=== PATIENT | female | born 1930 | race Caucasian/White ===

== ENCOUNTER 2017-03-25 09:00 | Outpatient (RCR) | payer MEDICARE, OTHER ==
[~2017-03-25 09:00] MED LIST: ACET500T68 PO; ADV250/50 INH; ALBU8.5H IH; AZI250 PO; AZIT500T47 PO; BUDE10.25 IH; CALC-682 PO; CEFU250 PO; CELE-1 PO; CELE50CA2 PO; COM14R IH; DEN60I SUBQ; DICL100G39 TOP; DOCU-202 PO; FLU220R INH; FURO-45 PO; GLUC-130 PO; GLUC500C29 PO; GUAI600T57 PO; HYDR-4225 PO; HYDR25CA13 PO; IBU200 PO; LOR5/325 PO; LORA5TAB16 PO; MET10 PO; METO-253 PO; MONT10TA PO; MULT1CAP41 PO; OXYC5TAB38 PO; OXYGENHOME INH; PAN40 PO; PANT20TA27 PO; POTA20TA94 PO; PRE10 PO; PROAIRPT IH; SYMBICORT INHALER; TIO18R; VEN75 PO; VENL150C61 PO; VENL37.53 PO; VENL75CA4 PO; VENL75CA58 PO; ZAFI10TA PO
[2017-04-01] MEDS ORDERED: IPRA3AMP21 IH ×2 (11:53→14:35)
[2017-04-01] MEDS ORDERED: PRED20TA6 PO (14:35)
== END 2017-04-01 ==
LOC: RESP 09:00
PROVIDERS: ATTEND Family Medicine
DX: J44.9 Chronic obstructive pulmonary disease, unspecified (principal)
CPT/HCPCS: G0424 ×8

== ENCOUNTER → 2017-04-01 | Outpatient (CLI) | payer MEDICARE, OTHER ==
[~2017-04-01] MED LIST changes: +IPRA3AMP21 IH; +PRED20TA6 PO
[2017-04-01 12:01] LABS: PLATELET COUNT, AUTOMATED 271 K/uL (150-450)
--- NOTE | 2017-04-01 13:08 | RADIOLOGY IMAGING REPORT ---
FACILITY: [facility] [place] PATIENT NAME: Marcus Rausch : 1930 MR: [id number] V: [id number] EXAM DATE: ORDERING PHYSICIAN: ADELINA WANG TECHNOLOGIST: Location: [facility] [place] Patient: Marcus Rausch : 1930 Visit/Account:[id number] Date of Sevice: 04/01/2017 EXAMINATION: PA and Lateral Chest 04/01/2017 12:14 PM HISTORY: Cough for about one week. No smoking history. COMPARISON: 12/04/2016 FINDINGS: Cardiomediastinal contours: Stable heart size. Atherosclerotic aorta. Lungs and pleura: Stable mildly accentuated reticular markings. No acute pulmonary or pleural proces s. Lungs are hyperinflated, unchanged. Bones/soft tissues: Old anterolateral right rib trauma. Osteopenia. Partially imaged dextroscolioti c lumbar curvature. IMPRESSION: Stable chest without acute cardiopulmonary finding. Report Dictated By: Brannon Wolf MD at 04/01/2017 1:01 PM Report E-Signed By: Brannon Wolf MD at 04/01/2017 1:03 PM WSN:[email or web address]
== END ==
LOC: RAD 11:42
PROVIDERS: ATTEND Nurse Practitioner Primary Care
DX: R05 Cough (principal)
CPT/HCPCS: 36415; 71046; 82040; 82247; 82310; 82374; 82435; 82565; 82947; 84075; 84132; 84155; 84295; 84450; 84460; 84520; 85025

== ENCOUNTER → 2017-04-11 | Outpatient (CLI) | payer MEDICARE, OTHER ==
[~2017-04-11] MED LIST changes: +AZIT-1 PO; +BENZ200C15 PO
--- NOTE | 2017-04-11 14:21 | RADIOLOGY IMAGING REPORT ---
FACILITY: [facility] [place] PATIENT NAME: Marcus Rausch : 1930 MR: [id number] V: [id number] EXAM DATE: ORDERING PHYSICIAN: ADELINA WANG TECHNOLOGIST: Location: [facility] - [place] Patient: Marcus Rausch : 1930 Visit/Account:[id number] Date of Sevice: 04/11/2017 CHEST PA AND LAT HISTORY: Cough. Wheezing. Shortness of breath. COMPARISON: 04/01/2017. FINDINGS: PA and lateral views of the chest are submitted. Lines/tubes: None. Lungs/pleura: Negative. Heart: Negative. Mediastinum: Negative. Bony structures/body wall: Degenerative changes in the spine. No acute osseous findings. IMPRESSION: No acute cardiopulmonary process. Report Dictated By: Greg Reid MD at 04/11/2017 2:15 PM Report E-Signed By: Greg Reid MD at 04/11/2017 2:17 PM WSN:[email or web address]
== END ==
LOC: RAD 13:24
PROVIDERS: ATTEND Nurse Practitioner Primary Care
DX: R05 Cough (principal)
CPT/HCPCS: 71046

== ENCOUNTER 2017-05-15 13:30 | Outpatient (RCR) | payer MEDICARE, OTHER | END 2017-05-20 | LOC: RESP 13:30 | PROVIDERS: ATTEND Family Medicine | DX: J44.9 Chronic obstructive pulmonary disease, unspecified (principal) | CPT/HCPCS: G0424 ×10 ==

== ENCOUNTER 2017-11-11 14:36 | Emergency (ER) | payer MEDICARE, OTHER ==
[~2017-11-11 14:36] MED LIST changes: +BENZ100C4 PO; +FLUT16SP19 NS; +GUAI600T84 PO; +IPRA3AMP10 IH; -IPRA3AMP21 IH
--- NOTE | 2017-11-11 14:49 | ER Report ---
History and Physical Time Seen By MD: 14:47 HPI/ROS CHIEF COMPLAINT: Shortness of breath HISTORY OF PRESENT ILLNESS: This is an 87-year-old female presents to the emergency department from the pulmonary rehabilitation clinic for shortness of breath. Patient was at pulmonary rehabilitation and began to have some dyspnea about 30 minutes prior to arrival, was noted to be in bigeminy and have a couple of couplets and runs of PVCs. Patient states that she has felt tired this morning, she rarely gets up at 5:30 to go get her paper she did that this morning, however this morning she ended up going back to bed, woke up 2 hours later it is felt that since then. States that when she got on the treadmill at pulmonary rehabilitation was when she began to have increased shortness of breath, she states it did take some time to resolve, she does have some slight shortness of breath still. She denies fevers or chills. No visual changes. No chest pain. No rashes or headaches. REVIEW OF SYSTEMS: Constitutional: No fever, no chills. Eyes: No discharge. ENT: No sore throat. Cardiovascular: No chest pain, no palpitations. Respiratory: As above. Gastrointestinal: No abdominal pain, no vomiting. Genitourinary: No hematuria. Musculoskeletal: No back pain. Skin: No rashes. Neurological: No headache. Allergies: Coded Allergies: codeine (Verified Adverse Reaction, Mild, SICK TO STOMACH, 02/27/12) Uncoded Allergies: HAYFEVER (Allergy, Unknown, 09/09/14) Home Meds Active Scripts Metoprolol Tartrate (METOPROLOL TARTRATE) 50 Mg Tab, 0.5 TAB PO BID, #180 TAB 4 Refills Prov:FALLON FOURNIER MD 10/15/17 Venlafaxine Hcl (VENLAFAXINE HCL ER) 37.5 Mg Cap.er.24h, 2 CAP PO QHS for 90 Days, #180 CAP 1 Refill Prov:FALLON FOURNIER MD 10/15/17 Pantoprazole Sodium (PANTOPRAZOLE SODIUM) 20 Mg Tablet.dr, 1 TAB PO QDAY for 90 Days, #90 TAB 4 Refills Prov:FALLON FOURNIER MD 07/16/17 Benzonatate 100 Mg Cap (TESSALON PERLE 100 MG CAP) 100 Mg Capsule, 100 MG PO TID for 10 Days, #30 CAP 1 Refill Prov:FALLON FOURNIER MD 06/16/17 Fluticasone Prop 50 Mcg Ns (FLONASE 50 MCG NS) 16 Gm [place].susp, 2 SPRAYS NS QDAY for 30 Days, #1 BOT 3 Refills Prov:FALLON FOURNIER MD 06/16/17 Budesonide/Formoterol Fumarate (SYMBICORT 80-4.5 MCG INHALER) 10.2 Gm Hfa.aer.ad, 2 PUFF IH BID for 90 Days, #3 INHALER 4 Refills Prov:FALLON FOURNIER MD 01/24/17 Albuterol Sulfate 90 Mcg/Act (PROAIR HFA 90 MCG/ACT) 8.5 Gm Hfa.aer.ad, 2 PUFF IH Q4-6H, #2 INHALER 3 Refills Prov:RAMONE MARTIN MD 12/04/16 Reported Medications Guaifenesin (Guaifenesin ER) 600 Mg Tab.er.12h, 2 TAB PO QDAY 10/15/17 Acetaminophen (TYLENOL EXTRA STRENGTH) 500 Mg Tablet, 2 TAB PO BID, CAP 01/24/17 Loratadine (CLARITIN) Unknown Strength Tab.rapdis, PO 01/06/17 Oxygen (OXYGEN) Inha, 2 L INH HS, L 01/06/17 Denosumab (PROLIA) 60 Mg/1 Ml Injs, 1 ML SUBQ [id number] 01/06/17 Montelukast Sodium (SINGULAIR) 10 Mg Tablet, 1 TAB PO QDAY, TAB 10/29/16 Past Medical/Surgical History The patient has a past medical and surgical history of migraines, hypertension, pneumonia, COPD, GERD, urinary tract infections, arthritis, rib fractures, sternal fracture, back pain, wears dentures, wears glasses, hard of hearing, colonoscopy, tonsillectomy, back surgery. Reviewed Nurses Notes: Yes Hx Smoking: No Smoking Status: Never Smoker Hx Substance Use Disorder: No Hx Alcohol Use: No Constitutional Vital Sign - Last 24 Hours 11/11/17 11/11/17 11/11/17 11/11/17 14:42 14:44 15:06 15:38 Pulse 67 61 Resp 20 B/P (MAP) 117/89 (98) 117/89 133/85 (101) Pulse Ox 95 94 O2 Delivery Room Air 11/11/17 11/11/17 11/11/17 11/11/17 16:00 16:06 16:11 16:30 Pulse 66 57 Resp 15 13 B/P (MAP) 124/81 (95) 131/74 (93) Pulse Ox 95 95 11/11/17 11/11/17 16:41 17:00 Pulse 73 Resp 16 B/P (MAP) 143/86 (105) Pulse Ox 96 Physical Exam General Appearance: The patient is alert, has no immediate need for airway protection and no signs of toxicity. Eyes: Pupils equal and round no pallor or injection. ENT, Mouth: Mucous membranes are dry. Respiratory: There are no retractions, lungs are clear to auscultation. Cardiovascular: Regular rate and rhythm, no murmurs, clicks or rubs. Gastrointestinal: Abdomen is soft and non tender, no masses, bowel sounds normal. Neurological: Alert and oriented 4. Moving all extremities. Following all commands. No focal neuro deficits. Skin: Warm and dry, no rashes. Musculoskeletal: Neck is supple non tender. Extremities are nontender, nonswollen and have full range of motion. DIFFERENTIAL DIAGNOSIS: After history and physical exam differential diagnosis was considered for shortness of breath including but not limited to pulmonary infectious process, COPD, asthma, pulmonary embolus and congestive heart failure. Medical Decision Making Data Points Result Diagram: 11/11/17 1534 11/11/17 1534 Laboratory Hematology Test 11/11/17 15:34 Red Blood Count 4.66 M/uL (4.17-5.56) Mean Corpuscular Volume 87.7 fL (80.0-96.0) Mean Corpuscular Hemoglobin 28.6 pg (26.0-33.0) Mean Corpuscular Hemoglobin Concent 32.6 g/dL (32.0-36.0) Red Cell Distribution Width 13.7 % (11.5-14.5) Mean Platelet Volume 8.7 fL (7.2-11.1) Neutrophils (%) (Auto) 49.3 % (39.4-72.5) Lymphocytes (%) (Auto) 36.1 % (17.6-49.6) Monocytes (%) (Auto) 11.0 % (4.1-12.4) Eosinophils (%) (Auto) 2.4 % (0.4-6.7) Basophils (%) (Auto) 1.2 % (0.3-1.4) Nucleated RBC Relative Count (auto) 0.0 /100WBC Neutrophils # (Auto) 2.6 K/uL (2.0-7.4) Lymphocytes # (Auto) 1.9 K/uL (1.3-3.6) Monocytes # (Auto) 0.6 K/uL (0.3-1.0) Eosinophils # (Auto) 0.1 K/uL (0.0-0.5) Basophils # (Auto) 0.1 K/uL (0.0-0.1) Nucleated RBC Absolute Count (auto) 0.00 K/uL Sodium Level 141 mmol/L (137-145) Potassium Level 4.5 mmol/L (3.5-5.0) Chloride Level 104 mmol/L (98-107) Carbon Dioxide Level 29 mmol/L (22-31) Blood Urea Nitrogen 21 mg/dl (7-18) Creatinine 0.90 mg/dl (0.52-1.04) Glomerular Filtration Rate Calc 59.5 Random Glucose 100 mg/dl (75-110) Calcium Level 9.5 mg/dl (8.4-10.2) Total Bilirubin 0.2 mg/dl (0.2-1.3) Aspartate Amino Transf (AST/SGOT) 16 U/L (0-35) Alanine Aminotransferase (ALT/SGPT) 22 U/L (0-56) Alkaline Phosphatase 38 U/L (0-126) Troponin I < 0.012 ng/ml Total Protein 7.0 g/dl (6.3-8.2) Albumin 4.1 g/dl (3.5-5.0) Chemistry Test 11/11/17 15:34 White Blood Count 5.3 k/uL (4.5-11.0) Red Blood Count 4.66 M/uL (4.17-5.56) Hemoglobin 13.3 g/dL (12.0-16.0) Hematocrit 40.8 % (34.0-47.0) Mean Corpuscular Volume 87.7 fL (80.0-96.0) Mean Corpuscular Hemoglobin 28.6 pg (26.0-33.0) Mean Corpuscular Hemoglobin Concent 32.6 g/dL (32.0-36.0) Red Cell Distribution Width 13.7 % (11.5-14.5) Platelet Count 247 K/uL (150-450) Mean Platelet Volume 8.7 fL (7.2-11.1) Neutrophils (%) (Auto) 49.3 % (39.4-72.5) Lymphocytes (%) (Auto) 36.1 % (17.6-49.6) Monocytes (%) (Auto) 11.0 % (4.1-12.4) Eosinophils (%) (Auto) 2.4 % (0.4-6.7) Basophils (%) (Auto) 1.2 % (0.3-1.4) Nucleated RBC Relative Count (auto) 0.0 /100WBC Neutrophils # (Auto) 2.6 K/uL (2.0-7.4) Lymphocytes # (Auto) 1.9 K/uL (1.3-3.6) Monocytes # (Auto) 0.6 K/uL (0.3-1.0) Eosinophils # (Auto) 0.1 K/uL (0.0-0.5) Basophils # (Auto) 0.1 K/uL (0.0-0.1) Nucleated RBC Absolute Count (auto) 0.00 K/uL Glomerular Filtration Rate Calc 59.5 Calcium Level 9.5 mg/dl (8.4-10.2) Total Bilirubin 0.2 mg/dl (0.2-1.3) Aspartate Amino Transf (AST/SGOT) 16 U/L (0-35) Alanine Aminotransferase (ALT/SGPT) 22 U/L (0-56) Alkaline Phosphatase 38 U/L (0-126) Troponin I < 0.012 ng/ml Total Protein 7.0 g/dl (6.3-8.2) Albumin 4.1 g/dl (3.5-5.0) EKG/Imaging EKG Interpretation 12 lead EKG: Time of EKG 1444. Rhythm: Sinus rhythm with PVCs, occasional bigeminal beats, ventricular rate 85 bpm. Cornish: normal QRS: normal ST segments: No ST elevation or depression identified. The 11/09/2016 EKG showing PVCs, Imaging Location: [facility] Patient: Marcus Rausch : 1930 Visit/Account:[id number] Date of : 11/11/2017 Exam type: CHEST PA AND LAT History: Shortness of breath Comparison: April 11, 2017. Findings: The lungs are free of acute effusions, infiltrates or edema. There is no evidence of a pneumothorax or pneumomediastinum. The cardiac silhouette is normal in size. The trachea is in midline. There are multiple old right-sided rib fractures. IMPRESSION: 1. No acute cardiopulmonary process is seen Report Dictated By: Puja Lopez MD at 11/11/2017 4:07 PM Report E-Signed By: Puja Lopez MD at 11/11/2017 4:08 PM WSN:[email or web address] ED Course/Re-evaluation Clinical Indication for ER IV: Hydration, IV Access ED Course The patient was admitted to a room. History of score obtained. Differential diagnoses were considered. An IV was started. A CBC, CMP and troponin were ob tained. Chest x-ray was negative for any acute cardiopulmonary process. EKG unremarkable for new findings, occasional PVCs. Lab studies unremarkable. Negative troponin. Patient was given a 1 L normal saline bolus. Patient states feeling better after the fluids, denies shortness of breath, no dyspnea no chest pain, no nausea or vomiting. Ambulating well. Patient is anxious to go home, I did review the laboratory studies and the radiology results with the patient. I reviewed the case with Dr. Fournier, the patient's primary care provider as noted below, patient does have a follow-up with Dr. Fournier in 2 days. Patient had no other questions or concerns at this time and was discharged home. 11/11/2017 4:53:04 pm he did speak with Dr. Fallon Fournier regarding the patients case. the patient does have a follow up appointment . Decision to Disposition Date: Nov 11, 2017 Decision to Disposition Time: 16:52 Depart Departure Latest Vital Signs Vital Signs Date Time Temp Pulse Resp B/P (MAP) Pulse Ox O2 Delivery O2 Flow Rate FiO2 11/11/17 17:00 143/86 (105) 11/11/17 16:41 73 16 96 11/11/17 14:44 Room Air Impression: Primary Impression: PVC (premature ventricular contraction) Condition: Improved Disposition: HOME OR SELF-CARE Referrals: FALLON FOURNIER MD (PCP) 2 Days Patient Instructions: Premature Ventricular Contractions (DC) Additional Instructions: There are no concerning findings today, chest x-ray, EKG and lab studies are all okay. Be sure to drink plenty of fluids. Get plenty of rest. Keep your follow up appointment with Dr. Fournier . Return to the ED for any other concerns or worsening symptoms. DORA DAVIES YARDING ENGINEER-BC Nov 11, 2017 14:49
[2017-11-11] MEDS ORDERED: NS(*) 0.9% 500 ML BAG 500 ML IV ONE (15:00)
--- NOTE | 2017-11-11 15:24 | EKG ---
FACILITY: [facility] - [place] PATIENT NAME: KASH HOOD : [id number] MR: [id number] V: [id number] EXAM DATE: ORDERING PHYSICIAN: DORA DAVIES TECHNOLOGIST: BETTY Mittal Reason : Blood Pressure : / mmHG Vent. Rate : 085 BPM Atrial Rate : 085 BPM P-R Int : 138 ms QRS Dur : 072 ms QT Int : 384 ms P-R-T Axes : 076 061 077 degrees QTc Int : 456 ms Sinus rhythm with frequent premature ventricular complexes Nonspecific T wave abnormality Abnormal ECG Confirmed by AMY REYEZ ([id number]) on 11/12/2017 5:52:53 AM Referred By: Confirmed By:AMY REYEZ
[2017-11-11 15:40] LABS: PLATELET COUNT, AUTOMATED 247 K/uL (150-450)
--- NOTE | 2017-11-11 16:12 | RADIOLOGY IMAGING REPORT ---
FACILITY: [facility] PATIENT NAME: Marcus Rausch : 1930 MR: [id number] V: [id number] EXAM DATE: ORDERING PHYSICIAN: DORA DAVIES TECHNOLOGIST: Location: [facility] [place] Patient: Marcus Rausch : 1930 Visit/Account:[id number] Date of Sevice: 11/11/2017 Exam type: CHEST PA AND LAT History: Shortness of breath Comparison: April 11, 2017. Findings: The lungs are free of acute effusions, infiltrates or edema. There is no evidence of a pneumothorax or pneumomediastinum. The cardiac silhouette is normal in size. The trachea is in midline. There a re multiple old right-sided rib fractures. IMPRESSION: 1. No acute cardiopulmonary process is seen Report Dictated By: Puja Lopez MD at 11/11/2017 4:07 PM Report E-Signed By: Puja Lopez MD at 11/11/2017 4:08 PM WSN:[email or web address]
[2017-11-11 17:00] VITALS: BP 143/86
== END 2017-11-11 17:29 | disposition home or self-care (01) ==
LOC: ER 14:49
DX: I49.3 Ventricular premature depolarization (principal); R94.31 Abnormal electrocardiogram [ECG] [EKG]
CPT/HCPCS: 71046; 84484; 85025; 93005; 96360; 99284; J7040; 82040; 82247; 82310; 82374; 82435; 82565; 82947; 84075; 84132; 84155; 84295; 84450; 84460; 84520

== ENCOUNTER → 2017-12-29 | Outpatient (CLI) | payer MEDICARE, OTHER ==
[~2017-12-29] MED LIST changes: +FLU180SY11 IM
--- NOTE | 2017-12-29 13:19 | RADIOLOGY IMAGING REPORT ---
FACILITY: [facility] PATIENT NAME: Marcus Rausch : 1930 MR: [id number] V: [id number] EXAM DATE: ORDERING PHYSICIAN: YOLI MALAVE TECHNOLOGIST: Location: [facility] Patient: Marcus Rausch : 1930 Visit/Account:[id number] Date of Sevice: 12/29/2017 Study: MRI of the thoracic spine without the use of gadolinium contrast. Indication:Back pain Comparison study:None Technique:Multiplanar MRI sequences were obtained through the thoracic spine without the use of gadol inium contrast. Alignment:The thoracic vertebral bodies are aligned normally. Thoracic vertebral bodies:There is no significantly abnormal signal identified within the thoracic ve rtebrae. Thoracic spinal cord:Unremarkable. Thoracic discs: There is a minimal diffuse disc bulge at T11-T12. This does not cause significant spi nal stenosis. There is mild left neural foraminal stenosis. Paraspinal soft tissues:No significant abnormality identified. IMPRESSION: No significant abnormality identified. Report Dictated By: Tong Jean at 12/29/2017 1:12 PM Report E-Signed By: Tong Jean at 12/29/2017 1:15 PM WSN:[email or web address]
== END ==
LOC: MRI 01:16
PROVIDERS: ATTEND Pain Medicine Interventional Pain Medicine
DX: M47.897 Other spondylosis, lumbosacral region (principal)
CPT/HCPCS: 72146

== ENCOUNTER → 2018-01-06 | Outpatient (CLI) | payer MEDICARE, OTHER ==
--- NOTE | 2018-01-06 16:45 | RADIOLOGY IMAGING REPORT ---
FACILITY: [facility] [place] PATIENT NAME: Marcus Rausch : 1930 MR: [id number] V: [id number] EXAM DATE: ORDERING PHYSICIAN: CHET JAMES TECHNOLOGIST: [place] [facility] [place]: Marcus Rausch : 1930 Visit/Account:[id number] Date of Sevice: 01/06/2018 Exam type: AP pelvis, single view left hip History: Left hip pain Comparison: Plain film 10/24/2016. Findings: There is no acute fracture the pelvis or hips. Patient is osteopenic. Degenerative changes are note d involving the SI joints and lower lumbosacral spine. Calcifications overlying the pelvis likely represents a calcified uterine fibroid and possibly phlebo liths and are unchanged. IMPRESSION: 1. No acute fracture of the pelvis or hips. 2. Osteopenia. 3. Degenerative changes are noted in the lower lumbosacral spine and SI joints. Report Dictated By: Dominik Dorado MD at 01/06/2018 4:37 PM Report E-Signed By: Dominik Dorado MD at 01/06/2018 4:40 PM WSN:[email or web address]
== END ==
LOC: RAD 16:07
PROVIDERS: ATTEND Neurological Surgery
DX: M85.80 Other specified disorders of bone density and structure, unspecified site (principal); M51.36 Other intervertebral disc degeneration, lumbar region

== ENCOUNTER 2018-03-19 13:00 | Outpatient (RCR) | payer MEDICARE, OTHER ==
--- NOTE | 2018-01-15 19:22 | PT INITIAL EVALUATION ---
MEDICAL DIAGNOSIS: Gluteal tendinitis, L hip TREATMENT DIAGNOSIS: same, low back pain with radiating pain DATE OF ONSET: 01/01/18 SUBJECTIVE: Marcus Rausch presents to physical therapy with complaints of L posterior hip pain that radiates to posterior thigh to knee and then down to posterior calf and rates it to be 9.5/10. She reports that this pain started after she had an MRI two weeks ago. She reports that she has increased pain with walking, standing up tall, and better with sitting. She reports that the pain feels better when she is still and worse with movement. She denies night pain since the MRI. She reports normal bladder control. She denies pain with coughing, sneezing, or straining. . . Pain location is L3-5 central, L posterior hip, radiating pain from posterior hip to knee, a and described as sharp and achy. Pain scale is 9 on a ten point pain scale. PREVIOUS MEDICAL HISTORY: See EMR OCCUPATION: Retired OBJECTIVE: Posture: She demonstrates forward head, increased thoracic kyphosis, and decreased lumbar lordosis. ROM: Trunk AROM: flexion: minimal restriction with muscular end feel. extension: minimal restriction with muscular end feel. side gliding R: moderate restriction with painful end feel. side gliding L: minimal restriction with painful end feel. Strength: L hip flexion, extension, abduction, adduction, L knee flexion and extension, and L ankle DF and PF: 4/5. R hip flexion, extension, abduction, adduction, R knee flexion and extension, and R ankle DF and PF: 5/5. Palpation: L3-5 central, L posterior hip, radiating pain from posterior hip to knee, and more radiating pain from posterior knee to mid-calf posterior. Sensation: Intact L2-S2 Special Tests: Repeated extension: increased pain during the test and peripheralized following the test. Repeated flexion: increased pain during the test and centralized following the test. Mobility: Independent Gait: Normal gait mechanics: extreme forward trunk lean with cane in R UE, not willing to put much weight on L LE, which resulted in decreased R LE step length, decreased velocity, and antalgic gait. ASSESSMENT: Marcus will benefit from skilled physical therapy to address the listed impairments to return to prior level of function. Short Term Goals 2 weeks: Pt will demonstrate centralized low back pain to improve function and QOL. 6 weeks; Pt will demonstrate abolished low back pain and abolished radiating pain to improve function and QOL. 6 weeks: Pt will return to prior level of function and significant improvement with L LE strength so that it is equal to the R LE to improve function and QOL. Patient's Goals improve pain PLAN: Patient to be seen for Manual Therapy/STM/MET Strengthening/condition Range of Motion Spinal Stabilization Work Hardening/Cond Stretching Neuromuscular Re-ed Closed Chain Program Posture/Body mechanics Home Exercise Program Therapeutic Activities 2-3x/Week for 6 Weeks If you have any questions, comments, or concerns about this report or plan, please contact me at . Thank you, Raphael Almonte, PT, DPT MTDD
--- NOTE | 2018-03-05 15:56 | PT PLAN OF CARE ---
Physician: Clement Rea MD Patient is being seen: 2x/week Therapist: Raphael Almonte, PT, DPT Medical Diagnosis: Gluteal tendinitis, L hip Treatment Diagnosis: same, low back pain with radiating pain Date of Onset: 01/01/18 Date of Initial Evaluation: 01/15/18 Date patient was last seen: 03/05/18 Number of treatments: 10 Number of cancellations/No shows: 1 INTERVENTIONS: PLAN: Patient to be seen for Manual Therapy/STM/MET Strengthening/condition Range of Motion Spinal Stabilization Work Hardening/Cond Stretching Neuromuscular Re-ed Closed Chain Program Posture/Body mechanics Home Exercise Program Therapeutic Activities Short Term Goals 2 weeks: Pt will demonstrate centralized low back pain to improve function and QOL. 6 weeks; Pt will demonstrate abolished low back pain and abolished radiating pain to improve function and QOL. 6 weeks: Pt will return to prior level of function and significant improvement with L LE strength so that it is equal to the R LE to improve function and QOL. Patient's Goals improve pain Status of Patient's Goals: Progressing Patient Compliance: Good Prognosis: Good Reasons for continuing therapy: This is a progress note for Marcus Rausch. She reports that she feels like she is doing so much better. She reports that she feels like she is 70% back to normal. She reports that she would like to eliminate the pain completely like it was prior to the MRI. She reports that she continues to perform her specific exercise. However, she reports that she continues to be fatigued due to recent cold. She continues to centralize low back pain and abolish her L hip pain with her specific exercise. She continues to be independent with her specific exercise. She is now able to ambulate without any L lower leg pain and has returned her gait mechanics to prior level. We will continue for 10 visits or less to 100% abolish her pain throughout her daily life so that she can return to prior level of function. Posture: She demonstrated increased forward trunk lean, B rounded shoulder, increased thoracic kyphosis, and no signs of lateral shift. She is able to fully weight bear through her L LE without any pain. ROM: Trunk AROM: flexion: NIL with muscular end feel. extension: NIL with muscular end feel. side gliding R: NIL with muscular end feel. side gliding L: NIL with muscular end feel. Strength: L hip flexion, extension, abduction, adduction, L knee flexion and extension, and L ankle DF and PF: 4/5 to 4+/5. R hip flexion, extension, abduction, adduction, R knee flexion and extension, and R ankle DF and PF: 5/5. Palpation: TTP: L3-5 central to L lateral hip Special Tests: Repeated R trunk rotation: centralizes her pain and leads to abolishing her pain. Mobility: Independent. If you have any questions, please contact me at [phone]. Thank you, Raphael Almonte, PT, DPT MTDD
[~2018-03-19 13:00] MED LIST changes: +NYST15CR32 TP
--- NOTE | 2018-03-19 17:13 | PT PLAN OF CARE ---
Physician: Clement Rea MD Patient is being seen: 2x/week Therapist: Raphael Almonte, PT, DPT Medical Diagnosis: Gluteal tendinitis, L hip Treatment Diagnosis: same, low back pain with radiating pain Date of Onset: 01/01/18 Date of Initial Evaluation: 01/15/18 Date patient was last seen: 03/19/18 Number of treatments: 13 Number of cancellations/No shows: 2 INTERVENTIONS: PLAN: Patient to be seen for Manual Therapy/STM/MET Strengthening/condition Range of Motion Spinal Stabilization Work Hardening/Cond Stretching Neuromuscular Re-ed Closed Chain Program Posture/Body mechanics Home Exercise Program Therapeutic Activities Short Term Goals 2 weeks: Pt will demonstrate centralized low back pain to improve function and QOL. 6 weeks; Pt will demonstrate abolished low back pain and abolished radiating pain to improve function and QOL. 6 weeks: Pt will return to prior level of function and significant improvement with L LE strength so that it is equal to the R LE to improve function and QOL. Patient's Goals improve pain Status of Patient's Goals: Progressed; met Patient Compliance: Good Prognosis: Good Reasons for continuing therapy: This is a discharge note for Marcus Rausch. She reports that she is doing well. She reports that she has minimal central low back pain. She denies any L sided hip, knee, ankle, or foot pain. She reports that she feels like she is independent with her specific exercise and HEP to fully recover from this injury. She continues to demonstrate centralized low back pain and abolished radiating pain and continues to be independent with home exercise program and with the eduction on how to prevent further reoccurrences. She has met all of her goals. As a result, she will be discharged from PT to [facility]. Posture: She demonstrated increased forward trunk lean, B rounded shoulder, increased thoracic kyphosis, and no signs of lateral shift. She is able to fully weight bear through her L LE without any pain. ROM: Trunk AROM: flexion: NIL with muscular end feel. extension: NIL with muscular end feel. side gliding R: NIL with muscular end feel. side gliding L: NIL with muscular end feel. Strength: L hip flexion, extension, abduction, adduction, L knee flexion and extension, and L ankle DF and PF: 4+/5. R hip flexion, extension, abduction, adduction, R knee flexion and extension, and R ankle DF and PF: 5/5. Palpation: TTP: L3-5 central Special Tests: Repeated R trunk rotation: centralizes her pain and leads to abolishing her pain. Mobility: Independent. If you have any questions, please contact me at [phone]. Thank you, Raphael Almonte, PT, DPT MTDD
== END 2018-03-19 18:00 | disposition home or self-care (01) ==
LOC: PT 13:00
PROVIDERS: ATTEND Orthopaedic Surgery Orthopaedic Trauma
DX: M76.02 Gluteal tendinitis, left hip (principal); M54.5 Low back pain
CPT/HCPCS: 97162

== ENCOUNTER 2018-07-11 10:01 | Emergency (ER) | payer MEDICARE, OTHER ==
--- NOTE | 2018-07-11 11:13 | ER Report ---
History and Physical Time Seen By MD: 11:13 Hx. of Stated Complaint: patient states that on she was seen for her cough, states that she was placed on medication and nebs but since then her cough has gotten worse and meds arent helping HPI/ROS CHIEF COMPLAINT: Shortness of breath, cough HISTORY OF PRESENT ILLNESS: 88-year-old female patient presents to emergency room with complaint of shortness of breath, cough. Patient states that she has been having this cough for the past several weeks. She states that it seems to be pretty significant. She states that she did see her primary care provider on for this. She states she was put on nebulizer treatment and a Z-Armani. Patient states that she is not feeling any better. She denies any fevers or chills. She states that she seems to be slightly worse after her nebulizer treatments. States she was coughing and felt "jittery". Patient denies any naus ea, vomiting or diarrhea. She states that she has not taken any steroids for this. REVIEW OF SYSTEMS: Respiratory: As noted above Cardiovascular: No chest pain, no palpitations. Gastrointestinal: No vomiting, no abdominal pain. Musculoskeletal: No back pain. Allergies: Coded Allergies: codeine (Verified Adverse Reaction, Mild, SICK TO STOMACH, 07/11/18) Uncoded Allergies: HAYFEVER (Allergy, Unknown, 09/09/14) Home Meds Active Scripts Prednisone (PREDNISONE) 20 Mg Tablet, 40 MG PO DAILY, #10 TAB Prov:KARIN SULTANAP 07/11/18 Ipratropium/Albuterol Sulfate (IPRAT-ALBUT 0.5-3(2.5) MG/3 ML) 3 Ml Ampul.neb, 3 ML IH Q4-6H PRN for COUGH, #1 BOX 0 Refills Prov:ADELINA WANG DNP, FNP-BC 07/09/18 Azithromycin (ZITHROMAX) 250 Mg Tablet, 0 PO QDAY, #6 TAB 0 Refills TAKE 2 TABLETS ON DAY 1 AND 1 TABLET ON DAYS 2-5 Prov:ADELINA WANG DNP, FNP-BC 07/09/18 Benzonatate 100 Mg Cap (TESSALON PERLE 100 MG CAP) 100 Mg Capsule, 100 MG PO BID PRN for COUGH for 10 Days, #20 CAP Prov:SAHARA FOURNIER MD 07/02/18 NYSTATIN [id number] UNT/ML Topical Cream (NYSTATIN [id number] UNT/ML Topical Cream) 15 Gm Cream..g., 1 AISHWARYA TP BID for 14 Days, #15 GM Prov:SAHARA FOURNIER MD 01/28/18 Diclofenac Sodium 1% Gel (VOLTAREN 1% GEL) 100 Gm Gel..gram., 2 GM TOP 2-3XD for 30 Days, #1 TUBE Prov:SAHARA FOURNIER MD 01/15/18 Montelukast Sodium (SINGULAIR) 10 Mg Tablet, 1 TAB PO QDAY for 90 Days, #90 TAB 4 Refills Prov:SAHARA FOURNIER MD 11/13/17 Venlafaxine Hcl (VENLAFAXINE HCL ER) 75 Mg Cap.er.24h, 75 MG PO QDAY for 90 Days, #90 CAP 4 Refills Prov:SAHARA FOURNIER MD 11/13/17 Pantoprazole Sodium (PANTOPRAZOLE SODIUM) 20 Mg Tablet.dr, 1 TAB PO QDAY for 90 Days, #90 TAB 4 Refills Prov:SAHARA FOURNIER MD 07/16/17 Fluticasone Prop 50 Mcg Ns (FLONASE 50 MCG NS) 16 Gm [place].susp, 2 SPRAYS NS QDAY for 30 Days, #1 BOT 3 Refills Prov:SAHARA FOURNIER MD 06/16/17 Budesonide/Formoterol Fumarate (SYMBICORT 80-4.5 MCG INHALER) 10.2 Gm Hfa .aer.ad, 2 PUFF IH BID for 90 Days, #3 INHALER 4 Refills Prov:SAHARA FOURNIER MD 01/24/17 Albuterol Sulfate 90 Mcg/Act (PROAIR HFA 90 MCG/ACT) 8.5 Gm Hfa.aer.ad, 2 PUFF IH Q4-6H, #2 INHALER 3 Refills Prov:RAMONE MARTIN MD 12/04/16 Reported Medications Guaifenesin (Guaifenesin ER) 600 Mg Tab.er.12h, 2 TAB PO QDAY 10/15/17 Acetaminophen (TYLENOL EXTRA STRENGTH) 500 Mg Tablet, 2 TAB PO BID, CAP 01/24/17 Loratadine (CLARITIN) Unknown Strength Tab.rapdis, PO 01/06/17 Oxygen (OXYGEN) Inha, 2 L INH HS, L [facility] Oxygen 01/06/17 Denosumab (PROLIA) 60 Mg/1 Ml Injs, 1 ML SUBQ [id number] 01/06/17 Past Medical/Surgical History Patient has a past medical history of migraines, hypertension, pneumonia, COPD, reflux, frequent UTI, arthritis, fractures, back pain, depression. Patient has a surgical history of tonsillectomy, back surgery, colonoscopy. Patient has a family medical history of cancer. Reviewed Nurses Notes: Yes Hx Smoking: No Smoking Status: Never Smoker Hx Substance Use Disorder: No Hx Alcohol Use: No Constitutional Vital Sign - Last 24 Hours 07/11/18 07/11/18 07/11/18 07/11/18 10:04 10:06 10:30 10:31 Temp 98.6 Pulse 90 80 Resp 18 9 B/P (MAP) 154/86 (108) 154/86 125/75 (92) Pulse Ox 93 90 O2 Delivery Room Air 07/11/18 07/11/18 07/11/18 07/11/18 11:00 11:01 11:30 11:31 Pulse 78 81 Resp 8 9 B/P (MAP) 127/74 (91) 134/78 (96) Pulse Ox 90 90 07/11/18 07/11/18 07/11/18 07/11/18 12:00 12:01 12:19 12:19 Pulse 81 76 Resp 7 16 B/P (MAP) 127/83 (98) Pulse Ox 97 95 O2 Delivery Room Air 07/11/18 07/11/18 07/11/18 12:27 12:30 12:31 Pulse 76 85 Resp 16 25 B/P (MAP) 146/84 (104) Pulse Ox 96 Physical Exam General Appearance: The patient is alert, has no immediate need for airway protection and no current signs of toxicity. Respiratory: Chest is non tender, lungs are diminished with wheezing to auscultation. Cardiac: regular rate and rhythm Gastrointestinal: Abdomen is soft and non tender, no masses, bowel sounds normal. Musculoskeletal: Neck: Neck is supple and non tender. Extremities have full range of motion and are non tender. Skin: No rashes or lesions. DIFFERENTIAL DIAGNOSIS: After history and physical exam differential diagnosis was considered for shortness of breath including but not limited to pulmonary infectious process, COPD, asthma, pulmonary embolus and congestive heart failure. Medical Decision Making Data Points Result Diagram: 07/11/18 1006 07/11/18 1006 Laboratory Hematology Test 07/11/18 10:06 Red Blood Count 4.28 M/uL (4.17-5.56) Mean Corpuscular Volume 88.6 fL (80.0-96.0) Mean Corpuscular Hemoglobin 28.8 pg (26.0-33.0) Mean Corpuscular Hemoglobin Concent 32.5 g/dL (32.0-36.0) Red Cell Distribution Width 13.0 % (11.5-14.5) Mean Platelet Volume 8.7 fL (7.2-11.1) Neutrophils (%) (Auto) 62.1 % (39.4-72.5) Lymphocytes (%) (Auto) 25.4 % (17.6-49.6) Monocytes (%) (Auto) 9.1 % (4.1-12.4) Eosinophils (%) (Auto) 2.7 % (0.4-6.7) Basophils (%) (Auto) 0.7 % (0.3-1.4) Nucleated RBC Relative Count (auto) 0.0 /100WBC Neutrophils # (Auto) 3.4 K/uL (2.0-7.4) Lymphocytes # (Auto) 1.4 K/uL (1.3-3.6) Monocytes # (Auto) 0.5 K/uL (0.3-1.0) Eosinophils # (Auto) 0.1 K/uL (0.0-0.5) Basophils # (Auto) 0.0 K/uL (0.0-0.1) Nucleated RBC Absolute Count (auto) 0.00 K/uL Sodium Level 143 mmol/L (137-145) Potassium Level 3.7 mmol/L (3.5-5.0) Chloride Level 110 mmol/L (98-107) Carbon Dioxide Level 25 mmol/L (22-31) Blood Urea Nitrogen 17 mg/dl (7-18) Creatinine 0.70 mg/dl (0.52-1.04) Glomerular Filtration Rate Calc > 60.0 Random Glucose 103 mg/dl (75-110) Calcium Level 9.5 mg/dl (8.4-10.2) Total Bilirubin 0.2 mg/dl (0.2-1.3) Aspartate Amino Transf (AST/SGOT) 25 U/L (0-35) Alanine Aminotransferase (ALT/SGPT) 25 U/L (0-56) Alkaline Phosphatase 52 U/L (0-126) Troponin I < 0.012 ng/ml Total Protein 7.1 g/dl (6.3-8.2) Albumin 4.2 g/dl (3.5-5.0) Chemistry Test 07/11/18 10:06 White Blood Count 5.4 k/uL (4.5-11.0) Red Blood Count 4.28 M/uL (4.17-5.56) Hemoglobin 12.3 g/dL (12.0-16.0) Hematocrit 37.9 % (34.0-47.0) Mean Corpuscular Volume 88.6 fL (80.0-96.0) Mean Corpuscular Hemoglobin 28.8 pg (26.0-33.0) Mean Corpuscular Hemoglobin Concent 32.5 g/dL (32.0-36.0) Red Cell Distribution Width 13.0 % (11.5-14.5) Platelet Count 295 K/uL (150-450) Mean Platelet Volume 8.7 fL (7.2-11.1) Neutrophils (%) (Auto) 62.1 % (39.4-72.5) Lymphocytes (%) (Auto) 25.4 % (17.6-49.6) Monocytes (%) (Auto) 9.1 % (4.1-12.4) Eosinophils (%) (Auto) 2.7 % (0.4-6.7) Basophils (%) (Auto) 0.7 % (0.3-1.4) Nucleated RBC Relative Count (auto) 0.0 /100WBC Neutrophils # (Auto) 3.4 K/uL (2.0-7.4) Lymphocytes # (Auto) 1.4 K/uL (1.3-3.6) Monocytes # (Auto) 0.5 K/uL (0.3-1.0) Eosinophils # (Auto) 0.1 K/uL (0.0-0.5) Basophils # (Auto) 0.0 K/uL (0.0-0.1) Nucleated RBC Absolute Count (auto) 0.00 K/uL Glomerular Filtration Rate Calc > 60.0 Calcium Level 9.5 mg/dl (8.4-10.2) Total Bilirubin 0.2 mg/dl (0.2-1.3) Aspartate Amino Transf (AST/SGOT) 25 U/L (0-35) Alanine Aminotransferase (ALT/SGPT) 25 U/L (0-56) Alkaline Phosphatase 52 U/L (0-126) Troponin I < 0.012 ng/ml Total Protein 7.1 g/dl (6.3-8.2) Albumin 4.2 g/dl (3.5-5.0) EKG/Imaging EKG Interpretation 12 lead EKG: Rhythm: normal sinus rhythm [place]: normal QRS: Prolonged QT ST segments: normal Imaging CHEST PA LAT COMPARISON: 11/11/2017 HISTORY: 2 weeks of shortness of breath and congestion FINDINGS: CARDIAC/VASC: No cardiac silhouette abnormality or cardiomegaly. Unremarkable pulmonary vasculature. MEDIASTINUM: No visible mass or adenopathy. LUNGS/PLEURA: No pneumothorax. No significant pulmonary parenchymal abnormalities. No effusion or pleural thickening. BONES: No fracture or visible bony lesion. Moderate cervical spine and upper lumbar spine, mild multilevel thoracic spine degenerative changes. OTHER:Negative. IMPRESSION: No acute cardiopulmonary process. Report Dictated By: Steve Mejia at 07/11/2018 11:37 AM Report E-Signed By: Steve Mejia at 07/11/2018 11:38 AM ED Course/Re-evaluation ED Course Patient was admitted to an exam room, history and physical were obtained. Differential diagnoses were considered. On examination lungs are diminished with wheezes, heart is regular, abdomen is soft nontender. A CBC, CMP, chest x-ray, EKG, troponin were done. The lab results were unremarkable, chest x-ray showed no acute cardiopulmonary processes, EKG showed a normal sinus rhythm with a prolonged QT. His myeloid the patient is having a COPD exacerbation. She is treated with 125 mg of Solu-Medrol, was given a breathing treatment. Patient states she is not feeling any better, however there is significant improvement in air movement. We will go ahead and discharge her home. We'll go ahead and have her start taking prednisone 40 mg daily for the next 5 days. We will have her follow-up with her primary care provider. I did request that she continue taking her antibiotics, and that she only had about 3 days left. Patient verbalized understanding and agreement with plan. Decision to Disposition Date: July 11, 2018 Decision to Disposition Time: 12:35 Depart Departure Latest Vital Signs Vital Signs Date Time Temp Pulse Resp B/P (MAP) Pulse Ox O2 Delivery O2 Flow Rate FiO2 07/11/18 12:31 85 25 96 07/11/18 12:30 146/84 (104) 07/11/18 12:19 Room Air 07/11/18 10:06 98.6 Impression: Primary Impression: COPD (chronic obstructive pulmonary disease) Condition: Improved Disposition: HOME OR SELF-CARE Referrals: SAHARA FOURNIER MD (PCP) New Scripts Prednisone (PREDNISONE) 20 Mg Tablet 40 MG PO DAILY, #10 TAB Prov: KARIN SULTANA 07/11/18 Patient Instructions: COPD (Chronic Obstructive Pulmonary Disease) (ED) Additional Instructions: Get plenty of rest. Increase fluid intake. Continue with the antibiotics as directed. Take the Steroids once a day, start them this afternoon. Return to the ER if condition worsens. Follow up with your primary care provider in the next week. Problem Qualifiers Primary Impression: COPD (chronic obstructive pulmonary disease) COPD type: COPD with acute exacerbation Qualified Codes: J44.1 - Chronic obstructive pulmonary disease with (acute) exacerbation KARIN SULTANA July 11, 2018 11:13
[2018-07-11 11:22] LABS: PLATELET COUNT, AUTOMATED 295 K/uL (150-450)
[2018-07-11] MEDS ORDERED: methylPREDNIS SUCC 125 MG/2ML IVP ONE (11:25)
[2018-07-11] MEDS ORDERED: NS(*) 0.9% 500 ML BAG 500 ML IV ONE (11:25)
--- NOTE | 2018-07-11 11:42 | RADIOLOGY IMAGING REPORT ---
FACILITY: [facility] PATIENT NAME: Marcus Rausch : 1930 MR: [id number] V: [id number] EXAM DATE: ORDERING PHYSICIAN: FABBY ELIZALDE TECHNOLOGIST: Location: [facility] [place] Patient: Marcus Rausch : 1930 Visit/Account:[id number] Date of Sevice: 07/11/2018 CHEST PA LAT COMPARISON: 11/11/2017 HISTORY: 2 weeks of shortness of breath and congestion FINDINGS: CARDIAC/VASC: No cardiac silhouette abnormality or cardiomegaly. Unremarkable pulmonary vasculatu re. MEDIASTINUM: No visible mass or adenopathy. LUNGS/PLEURA: No pneumothorax. No significant pulmonary parenchymal abnormalities. No effusion or p leural thickening. BONES: No fracture or visible bony lesion. Moderate cervical spine and upper lumbar spine, mild m ultilevel thoracic spine degenerative changes. OTHER:Negative. IMPRESSION: No acute cardiopulmonary process. Report Dictated By: Steve Mejia at 07/11/2018 11:37 AM Report E-Signed By: Steve Mejia at 07/11/2018 11:38 AM WSN:[id number]
[2018-07-11] MEDS ORDERED: ALBUTEROL/IPRATROPIUM 3 ML NEB NEB ONE (12:10)
[2018-07-11 12:30] VITALS: BP 146/84
--- NOTE | 2018-07-11 12:31 | EKG ---
[place] [facility] [place] NAME: KASH HOOD : [id number] MR: [id number] V: [id number] EXAM DATE: ORDERING PHYSICIAN: KARIN SULTANA TECHNOLOGIST: AASHISH Test Reason : Blood Pressure : / mmHG Vent. Rate : 083 BPM Atrial Rate : 083 BPM P-R Int : 148 ms QRS Dur : 078 ms QT Int : 420 ms P-R-T Axes : 049 034 052 degrees QTc Int : 493 ms Normal sinus rhythm Prolonged QT No ST-T abnormalities When compared with ECG of 11-NOV-2017 14:44, premature ventricular complexes are no longer present Nonspecific T wave abnormality, improved in Lateral leads Confirmed by STEVAN ARMSTRONG ([id number]) on 07/11/2018 12:36:38 PM Referred By: FIDE Confirmed By:STEVAN ARMSTRONG
[2018-07-11] MEDS ORDERED: PRED20TA6 PO (12:32)
[2018-07-14] MEDS ORDERED: AMOX-559 PO (13:53)
== END 2018-07-11 12:45 | disposition home or self-care (01) ==
LOC: ER 10:48
DX: J44.1 Chronic obstructive pulmonary disease with (acute) exacerbation (principal)
CPT/HCPCS: 71046; 84484; 85025; 93005; 94640; 96374; 99284; J2930; J7040; J7620; 82040; 82247; 82310; 82374; 82435; 82565; 82947; 84075; 84132; 84155; 84295; 84450; 84460; 84520

== ENCOUNTER → 2018-08-04 | Outpatient (CLI) | payer MEDICARE, OTHER ==
[~2018-08-04] MED LIST changes: +AMOX-559 PO
[2018-08-04 12:03] LABS: PLATELET COUNT, AUTOMATED 288 K/uL (150-450)
== END ==
LOC: LAB 11:39
PROVIDERS: ATTEND Family Medicine
DX: R53.83 Other fatigue (principal)
CPT/HCPCS: 36415; 82040; 82247; 82310; 82374; 82435; 82565; 82947; 84075; 84132; 84155; 84295; 84443; 84450; 84460; 84520; 85025